=== PATIENT | male | born 1990 | race Caucasian/White ===

== ENCOUNTER 2019-03-25 09:19 | Emergency (ER) | payer BC, OTHER ==
[2019-03-25 09:27] VITALS: BP 128/72
--- NOTE | 2019-03-25 09:51 | UC ---
General HPI - HPI Summary HPI Summary: 28-year-old male presents with complaints of having a grape stuck in his throat. States he had 4 or 5 grapes in his mouth this morning and he choked. He was able to remove a couple of the grapes but feels like he still has something stuck in his throat. He has been unable to drink or swallow his saliva since the incident. States he's had a previous history of a food bolus. He is able to speak in full sentences and denies any shortness of breath. - History of Current Complaint Chief Complaint: UCForeignBody Stated Complaint: THROAT COMPLAINT Time Seen by Provider: 03/25/19 09:46 Hx Obtained From: Patient Pain Intensity: 8 - Allergy/Home Medications Allergies/Adverse Reactions: Allergies Allergy/AdvReac Type Severity Reaction Status Date / Time No Known Allergies Allergy Verified 03/25/19 09:27 PMH/Surg Hx/FS Hx/Imm Hx Respiratory History: Asthma Psychological History: Anxiety, Depression Other History Of: Negative For: Anticoagulant Therapy - Surgical History Surgical History: Yes Surgery Procedure, Year, and Place: appendectomy. left shoulder scopy x2. right hip scopy. inguinal left hernia x2 - Family History Known Family History: Positive: Non-Contributory - Social History Occupation: Unemployed Lives: With Family Alcohol Use: None Substance Use Type: None Smoking Status (MU): Never Smoked Tobacco Type: Cigarettes, Cigars Amount Used/How Often: 2 per week Length of Time of Smoking/Using Tobacco: 5+ years Have You Smoked in the Last Year: Yes Review of Systems All Other Systems Reviewed And Are Negative: Yes Constitutional: Negative: Fever, Chills ENT: Positive: Other - See HPI Respiratory: Positive: Cough. Negative: Shortness Of Breath Cardiovascular: Negative: Palpitations, Chest Pain Gastrointestinal: Negative: Abdominal Pain, Vomiting, Nausea Genitourinary: Positive: Negative Musculoskeletal: Positive: Negative Neurological: Positive: Negative Is Patient Immunocompromised?: No Physical Exam - Summary Physical Exam Summary: GENERAL APPEARANCE: Well developed, well nourished, alert and cooperative, and appears to be in no acute distress. He is able to speak in full sentences however is continuously having to spit out his saliva. THROAT: Pharynx normal No tonsilar inflammation, swelling, exudate, or lesions. Uvula midline. Airway patent. CARDIAC: Normal S1 and S2. No S3, S4 or murmurs. Rhythm is regular. There is no peripheral edema, cyanosis or pallor. Extremities are warm and well perfused. Capillary refill is less than 2 seconds. Peripheral pulses intact. LUNGS: Clear to auscultation without rales, rhonchi, wheezing or diminished breath sounds. ABDOMEN: Positive bowel sounds. Soft, nondistended, nontender. No guarding or rebound. No masses or hepatosplenomegally. MUSKULOSKELETAL: ROM intact to all extremities. No joint erythema or tenderness. Normal muscular development. Normal gait. SKIN: Skin normal color, texture and turgor with no lesions or eruptions. Triage Information Reviewed: Yes Vital Signs: Initial Vital Signs Temp 98.3 F 03/25/19 09:22 Pulse 88 03/25/19 09:22 Resp 20 03/25/19 09:22 BP 128/72 03/25/19 09:22 Pulse Ox 96 03/25/19 09:22 Vital Signs Reviewed: Yes Course/Dx - Course Course Of Treatment: 28-year-old male presents with complaints of having a grape stuck in his throat. States he had 4 or 5 grapes in his mouth this morning and he choked. He was able to remove a couple of the grapes but feels like he still has something stuck in his throat. He has been unable to drink or swallow his saliva since the incident. States he's had a previous history of a food bolus. He is able to speak in full sentences and denies any shortness of breath. Afebrile. Vital signs stable. Patient had a patent airway with clear bilateral breath sounds however was unable to swallow his saliva and was consistently having to spit. Remainder of his exam was unremarkable. Suspect that he likely has an esophageal obstruction secondary to a food bolus and recommending that he be further evaluated and treated in the emergency room at this time. Patient is agreeable to this however declines transport via EMS and is electing to go by private vehicle. The patient is clinically sober, free from distracting injury, appears to have insight and reasoning and in my judgment has capacity to make decisions. I have explained that I am concerned that his symptoms may represent an esophageal obstruction secondary to a food bolus and he verbalizes understanding of my concern. I have discussed the need for further evaluation in the emergency room for definitive treatment of his food bolus. I have told the patient if he chooses to transport via private vehicle he could have worsening of symptoms, become critically ill, suffer diability, and even possibly . The patient continues to decline transport via EMS. Patient left the facility prior to signing discharge paperwork or declination of EMS transport. - Diagnoses Provider Diagnosis: Esophageal obstruction due to food impaction Discharge - Sign-Out/Discharge Documenting (check all that apply): Patient Departure All imaging exams completed and their final reports reviewed: No Studies - Discharge Plan Condition: Stable Disposition: HOME-RECOMMEND TO ED Referrals: Klever RODRIGUEZ,Keegan Watkins [Primary Care Provider] - Additional Instructions: I am concerned that you have an obstruction in your esophagus that needs to be removed. Go directly to the emergency room from here for evaluation and treatment. - Billing Disposition and Condition Condition: STABLE Disposition: Home-Recommend to ED
== END 2019-03-25 09:57 | disposition home health service (06) ==
LOC: UCEAST 09:19
DX: T18.128A Food in esophagus causing other injury, initial encounter (principal); X58.XXXA Exposure to other specified factors, initial encounter; Y92.9 Unspecified place or not applicable; F17.210 Nicotine dependence, cigarettes, uncomplicated; F17.290 Nicotine dependence, other tobacco product, uncomplicated
CPT/HCPCS: 99202; G0463

== ENCOUNTER 2019-03-25 10:56 | Emergency (ER) | payer OTHER ==
[2019-03-25] MEDS ORDERED: Glucagon* 1 MG VIAL IV ONE (11:09)
--- NOTE | 2019-03-25 11:09 | ED ---
Complex/Multi-Sys Presentation - HPI Summary HPI Summary: This patient is a 28 year old M presenting to [facility] with a chief complaint of obstruction in throat since last night. Pt was eating grapes, and did not chew properly, and it got stuck in his throat. Pt was able to get one grape out using the heimlich, but was not able to remove the other grape. The patient rates the pain 9/10 in severity. Pt reports he cannot swallow his saliva. This has occurred previously when he was eating roast beef, and he had to get it removed immediately. - History Of Current Complaint Chief Complaint: EDForeignBodyEsophag Time Seen by Provider: 03/25/19 10:57 Hx Obtained From: Patient Onset/Duration: Sudden Onset, Lasting Hours, Still Present Timing: Constant Severity Currently: Severe Severity Initially: Severe Location: Pain At: - throat Aggravating Factor(s): swallowing Associated Signs And Symptoms: Positive: Other - pos : throat pain, trouble swallowing - Allergies/Home Medications Allergies/Adverse Reactions: Allergies Allergy/AdvReac Type Severity Reaction Status Date / Time No Known Allergies Allergy Verified 03/25/19 09:27 Home Medications: Home Medications ALPRAZolam [Xanax] 1 - 2 mg PO DAILY PRN 03/25/19 [History Confirmed 03/25/19] ALPRAZolam [Xanax] 2 mg PO QID 03/25/19 [History Confirmed 03/25/19] Cyclobenzaprine TAB* [Flexeril 10 MG TAB*] 10 mg PO TID PRN 03/25/19 [History Confirmed 03/25/19] Oxycodone HCl/Acetaminophen [Percocet] 1 tab PO Q6HR PRN 03/25/19 [History Confirmed 03/25/19] QUEtiapine TAB* [Seroquel 25 MG TAB*] 25 - 50 mg PO BEDTIME 03/25/19 [History Confirmed 03/25/19] Sertraline* [Zoloft*] 250 mg PO DAILY 03/25/19 [History Confirmed 03/25/19] PMH/Surg Hx/FS Hx/Imm Hx Endocrine/Hematology History: Denies: Hx Anticoagulant Therapy, Hx Diabetes, Hx Thyroid Disease Cardiovascular History: Reports: Hx Hypertension Denies: Hx Pacemaker/ICD Respiratory History: Reports: Hx Asthma Denies: Hx Chronic Obstructive Pulmonary Disease (COPD) GI History: Denies: Hx Ulcer History: Denies: Hx Renal Disease Neurological History: Denies: Hx Dementia, Hx Seizures Psychiatric History: Denies: Hx Substance Abuse - Surgical History Surgery Procedure, Year, and Place: appendectomy. left shoulder scopy x2. right hip scopy. inguinal left hernia x2 Infectious Disease History: No Infectious Disease History: Denies: Hx Clostridium Difficile, Hx Hepatitis, Hx Human Immunodeficiency Virus (HIV), Hx of Known/Suspected MRSA, Hx Shingles, Hx Tuberculosis, Hx Known/ Suspected VRE, Hx Known/Suspected VRSA, History Other Infectious Disease, Traveled Outside the [place] in Last 30 Days - Family History Known Family History: Positive: Other - FHx of Bipolar Disorder - Social History Alcohol Use: None Substance Use Type: Reports: None Smoking Status (MU): Light Every Day Tobacco Smoker Type: Cigarettes, Cigars Amount Used/How Often: 2 per week Length of Time of Smoking/Using Tobacco: 5+ years Have You Smoked in the Last Year: Yes Review of Systems Negative: Fever Positive: Other - pos : throat pain, trouble swallowing All Other Systems Reviewed And Are Negative: Yes Physical Exam - Summary Physical Exam Summary: Appearance: The patient is well-nourished in obvious discomfort. Skin: The skin is warm and dry and skin color reflects adequate perfusion. HEENT: The head is normocephalic and atraumatic. The pupils are equal and reactive. The conjunctivae are clear and without drainage. Nares are patent and without drainage. Mouth reveals moist mucous membranes. The external ears are intact. The ear canals are patent and without drainage. The tympanic membranes are intact. Not managing secretions well. Neck: The neck is supple with full range of motion and non-tender. There are no carotid bruits. There is no neck vein distension. Respiratory: Chest is non-tender. Lungs are clear to auscultation and breath sounds are symmetrical and equal. Cardiovascular: Heart is regular rate and rhythm. There is no murmur or rub auscultated. There is no peripheral edema and pulses are symmetrical and equal. Abdomen: The abdomen is soft and non-tender. There are normal bowel sounds heard in all four quadrants and there is no organomegaly palpated. Musculoskeletal: There is no back tenderness noted. Extremities are non-tender with full range of motion. There is good capillary refill. There is no peripheral edema or calf tenderness elicited. Neurological: Patient is alert and oriented to person, place and time. The patient has symmetrical motor strength in all four extremities. Cranial nerves are grossly intact. Deep tendon reflexes are symmetrical and equal in all four extremities. Psychiatric: The patient has an appropriate affect and does not exhibit any anxiety or depression. Triage Information Reviewed: Yes Vital Signs On Initial Exam: Initial Vitals Temp Pulse Resp BP Pulse Ox 98.1 F 79 18 135/75 93 03/25/19 10:58 03/25/19 10:58 03/25/19 10:58 03/25/19 10:58 03/25/19 10:58 Vital Signs Reviewed: Yes Diagnostics - Vital Signs Vital Signs Temp Pulse Resp BP Pulse Ox 03/25/19 10:58 98.1 F 79 18 135/75 93 - Laboratory Lab Statement: Any lab studies that have been ordered have been reviewed, and results considered in the medical decision making process. - Radiology Soft Tissue Neck X-Ray Radiology Interpretation Completed By: Radiologist Summary of Radiographic Findings: Soft Tissue Neck X-Ray reveals, per radiologist, IMPRESSION: 1. NO RADIOPAQUE FOREIGN BODY (A GRAPE IS UNLIKELY TO THE RADIOPAQUE). 2. THE PREVERTEBRAL SOFT TISSUES AT THE LEVEL OF THE CRICOPHARYNGEAL SPHINCTER ARE AT THE UPPER LIMITS OF NORMAL IN THICKNESS. ED [facility] HAS REVIEWED THISD RADIOLOGY REPORT. Complex Multi-Symp Course/Dx Course Of Treatment: Mr. Casarez presented complaining since last night that he's had a grape caught in his upper esophagus. He says he is having trouble managing his secretions. This happened once before with a piece of steak and he had to have it removed. He was nontoxic in appearance with stable vitals but looked uncomfortable. I spoke with Dr. Gutiérrez who stated he could come to the department in a couple of hours and requested that I give him glucagon. He was concerned that with an obstruction up high he would have to consult ENT for removal. Patient was given glucagon which didn't help. I spoke with Dr. Vargas about the patient and he requested a barium swallow. I spoke with Dr. Kwok who felt that the barium swallow would not help in this circumstance. Prior to getting back hold of Dr. Vargas, Dr. Gutiérrez came and was able to remove the object under conscious sedation. - Diagnoses Provider Diagnoses: Esophageal foreign body - Physician Notifications Discussed Care Of Patient With: Sawyer Gutiérrez Time Discussed With Above Provider: 11:04 Instructed by Provider To: Other - Discussed pt case with Dr. Gutiérrez, who will come see him in the ED. 12:23 - Dr. Vargas recommends a barium swallow. 15: 26 - Dr. Gutiérrez was able to take out the grape, recommends narcotics for pain management Discharge - Sign-Out/Discharge Documenting (check all that apply): Patient Departure - Discharge Patient Received Moderate/Deep Sedation with Procedure: No - Discharge Plan Condition: Stable Disposition: HOME Prescriptions: Acetaminoph/Cod 120/12 mg LIQ* [Tylenol/Codeine 120/12 LIQ*] 5 ml PO Q4H PRN # 100 ml MDD 20 PRN Reason: Pain - Mild Acetaminoph/Cod 120/12 mg LIQ* [Tylenol/Codeine 120/12 LIQ*] 5 ml PO Q4H PRN # 100 ml MDD 20 PRN Reason: Pain - Mild traMADol TAB* [Ultram*] 50 mg PO Q6HR PRN #10 tab MDD 4 PRN Reason: Pain Patient Education Materials: Esophageal Foreign Body (ED) Referrals: Keegan Ernst MD [Primary Care Provider] - 3 Days Additional Instructions: Follow up with Primary Care Provider within 2-3 days. RETURN TO THE ED FOR ANY NEW OR WORSENING SYMPTOMS. - Billing Disposition and Condition Condition: STABLE Disposition: Home - Attestation Statements Document Initiated by Lidiaibe: Yes Documenting Scribe: Anna Knight Provider For Whom Scribe is Documenting (Include Credential): Dr. Michael Preciado MD Scribe Attestation: Anna Camargo scribed for Dr. Michael Preciado MD on 03/25/19 at 1915. Scribe Documentation Reviewed: Yes Provider Attestation: The documentation as recorded by the Anna villaseñor accurately reflects the service I personally performed and the decisions made by me, Dr. Michael Preciado MD Status of Scribe Document: Viewed
[2019-03-25] MEDS ORDERED: Sterile Water for Inj* 10 ML ONE (11:19)
[2019-03-25] MEDS ORDERED: fentaNYL* 50 MCG/ML 2 ML VIAL (100 MCG VIAL) ONE (14:03)
[2019-03-25] MEDS ORDERED: Midazolam* 1 MG/ML 10 ML VIAL (10 MG) ONE (14:04)
[2019-03-25 15:31] VITALS: BP 134/83
[2019-03-25] MEDS ORDERED: Acetaminoph/Cod 120/12 mg LIQ* 5 ML UDC PO ONE (15:46)
--- NOTE | 2019-03-26 09:42 | PRO ---
PROCEDURE REPORT: DATE OF PROCEDURE: 03/25/19 LOCATION: Emergency Room. PROCEDURE: EGD with foreign body removal. INDICATION: Esophageal foreign body. MEDICATIONS GIVEN: 1. 200 mcg IV fentanyl. 2. 20 mg IV Versed. DESCRIPTION OF PROCEDURE: After the EGD procedure including risks, benefits, and alternatives not limited to perforation, surgery, and/or were explained to Mr. Casarze, written consent was then obtained, IV medication was given, and a bite- block was placed between the teeth. An Olympus gastroscope was then inserted into the patient's mouth and advanced to the upper esophageal sphincter. Immediately upon passing through the upper esophageal sphincter, there was a round mass-like object, it did appear to be the aforementioned grape. At that point, I did use the biopsy forceps to carve out the center of the grape, multiple bites were obtained, greater than 20. Eventually, the grape did collapse on itself and I was able to gently push it down the esophagus into the stomach. Noted in the esophagus were numerous furrows and rings, some cobblestoning, potentially consistent with eosinophilic esophagitis. Biopsies were obtained. Very careful evaluation of the upper esophageal sphincter did not reveal any significant injury or trauma. The scope was advanced through widely patent GE junction into the body of the stomach. Retroflex and forward views were unremarkable with the exception of the grape in the stomach lumen. The scope was advanced through a widely patent pylorus into the duodenal bulb, it was unremarkable. Scope was then withdrawn from the patient. He tolerated the procedure well and was returned to the care of the ED staff. IMPRESSION: 1. Complete upper endoscopy into the distal duodenum with esophageal foreign body removal and biopsies. 2. Esophageal foreign body, grape, removed with biopsy forceps. 3. Biopsies for eosinophilic esophagitis. I did call in Flovent for him. He will call me back in a few weeks with an update. [id number]/[facility] #: [id number] [facility]OSPITALChelita
--- NOTE | 2019-03-28 19:24 | CONS ---
CONSULTATION REPORT: DATE OF CONSULT: 03/25/19 - EMERGENCY DEPT INDICATION: Esophageal foreign body. NARRATIVE: This is a 28-year-old gentleman who states that he was eating grapes earlier on today and accidentally swallowed a whole one. It became stuck in his throat. This occurred last night. This morning, he came to the emergency room. He states he is unable to pass it down. He does have some discomfort just below his sternal notch. He is unable to swallow his own saliva. He has had this before with meat and had to have an endoscopy to have it removed. PAST MEDICAL HISTORY: Significant for: 1. Dysphagia. 2. Anxiety. 3. Chronic orthopedic issues. PAST SURGICAL HISTORY: Includes: 1. Inguinal hernia repair. 2. Appendectomy. 3. Shoulder scope. 4. Hip scope. MEDICATIONS: At home include: 1. Xanax. 2. Flexeril. 3. Percocet. 4. Seroquel. 5. Zoloft. ALLERGIES: He has no known allergies. FAMILY HISTORY: Bipolar. SOCIAL HISTORY: He smokes tobacco; I counseled him against this. No alcohol. REVIEW OF SYSTEMS: Other than that mentioned in the HPI, the 12 systems were reviewed and were unremarkable. PHYSICAL EXAMINATION: Temperature is 98.1, blood pressure is 135/75. General: Well-appearing male, in no apparent distress, alert, oriented, pleasant. HEENT : Mucous membranes are moist without lesions, ulcers, or exudate. Neck is supple. Trachea is midline. Head is normocephalic, atraumatic. Heart: Regular rate and rhythm. Lungs: Clear to auscultation. Abdomen: Positive bowel sounds. Soft, nontender, nondistended. No hepatosplenomegaly, masses, rebound, or guarding. Skin is warm and dry. LABORATORY DATA: Labs of note, none. ASSESSMENT AND PLAN: A pleasant 28-year-old gentleman with a grape stuck in his esophagus. I will need to make arrangement for an immediate EGD with removal. We will perform the procedure in the emergency room. [id number]/[facility] #: [id number] [facility]ITAL[facility]hel[facility]
== END 2019-03-25 15:50 | disposition home or self-care (01) ==
LOC: ED 10:56
DX: T18.128A Food in esophagus causing other injury, initial encounter (principal); X58.XXXA Exposure to other specified factors, initial encounter; Y92.9 Unspecified place or not applicable; I10 Essential (primary) hypertension; F17.210 Nicotine dependence, cigarettes, uncomplicated; Z79.899 Other long term (current) drug therapy
CPT/HCPCS: 70360; 88305; 96374; 96375; 99156; 99157; 99284; J1610; J2250; J3010